=== PATIENT | male | born 1955 | race Caucasian/White ===

== ENCOUNTER 2021-02-26 01:07 | Day surgery (SDC) | payer MEDICARE, SELFPAY ==
[2021-02-16 11:43] VITALS: BMI 24.3
--- NOTE | 2021-02-26 09:48 | WPDANESEPPF ---
Anes - Initial Pre Proc Eval Procedure: Operation Date: 02/26/21 12:30 Proposed Procedures p Screening Colonoscopy - George Silvestre MD Date/Time: 02/26/21 09:48 Surgeon: George Silvestre MD Pre Op Diagnosis: hx of colon polyps Patient Data Age: 65 Gender: M Height: 1.78 m Weight: 77 kg Allergies Allergy/AdvReac Type Severity Reaction Status Date / Time No Known Allergies Verified 02/26/21 11:14 Home Medications Medication Instructions Recorded Confirmed Type aspirin [Adult Aspirin] 81 mg PO Q48H 02/16/21 02/16/21 History atorvastatin 20 mg PO DAILY 02/16/21 02/16/21 History fluticasone propionate 2 spray INTRANASAL DAILY 02/16/21 02/16/21 History Patient hx anesthesia problems: none Family hx anesthesia problems: none Results Review: All pre-operative results and documents have been reviewed as part of the pre-operative evaluation. [facility] Past Medical History Medical History (Updated 02/26/21 @ 09:49 by Mo Cordova MD) Hyperlipidemia DAWSON on CPAP PUD (peptic ulcer disease) Social History Social History Smoking status: Never smoker Alcohol intake: current Drinks per week: 2 Alcohol use details: SHOTS Substance use: never Substance use type: does not use Living arrangements: with family Spiritual care concerns: No Anes - Eval Final PreProcedure Day of Procedure 02/26/21 09:48 Patient weight: normal Heart: regular rate and rhythm Lungs: clear to auscultation and normal air movement Airway: Mallampati scale class II Neurological: alert and oriented Last oral intake: >/= 8 hours ASA classification: II Emergent: no Anesthetic plan: proceed Anesthesia type and monitoring: general GIVS Results Review: All pre-operative results and documents have been reviewed as part of the pre-operative evaluation. Informed Consent: The patient's anesthetic plan and its attendant risks and benefits were discussed with the patient/family/POA. Questions were solicited and answers provided to the satisfaction of the patient/family/POA.
[2021-02-26 11:20] VITALS: BP 131/72; PULSE 68; RESP 20; TEMP 36; O2SAT 100; BMI 24.7
[2021-02-26] MEDS: LACTATED RINGERS 1,000 ML 150 ML IV CONT (11:39)
--- NOTE | 2021-02-26 12:05 | WPDGICN ---
Assessment and Plan Assessment and plan (1) History of colon polyps: Code(s): Z86.010 - Personal history of colonic polyps Status: Acute Assessment and Plan: Patient has a history of adenomatous colon polyp removed from the colon in 2016 plan for surveillance colonoscopy at this time. Further recommendations will be given after colonoscopy. GI Consult Note Consult date/time: 02/26/21 12:05 HPI: Gabe Holden is a 65 year old male Presents for screening colonoscopy. Patient has a history of adenomatous colon polyp removed from the colon 5 years ago. He reports his current weight appetite bowel movements are normal. He denies abdominal pain. He has had no bleeding. Family history is noncontributory. Review of Systems Review of Systems: All systems reviewed & are unremarkable except as noted in HPI and below PMFSH Past Medical History Medical History (Updated 02/26/21 @ 12:06 by George Silvestre MD) Hyperlipidemia DAWSON on CPAP PUD (peptic ulcer disease) Social History Social History Smoking status: Never smoker Alcohol intake: current Drinks per week: 2 Alcohol use details: SHOTS Substance use: never Substance use type: does not use Living arrangements: with family Spiritual care concerns: No Meds Home Medications and Allergies Home Medications Medication Instructions Recorded Confirmed Type aspirin [Adult Aspirin] 81 mg PO Q48H 02/16/21 02/16/21 History atorvastatin 20 mg PO DAILY 02/16/21 02/16/21 History fluticasone propionate 2 spray INTRANASAL DAILY 02/16/21 02/16/21 History Allergies Allergy/AdvReac Type Severity Reaction Status Date / Time No Known Allergies Verified 02/26/21 11:14 Vital Signs Vital Signs - 24 hr 02/26/21 11:20 Temperature 96.8 F L Pulse Rate 68 Respiratory Rate 20 Blood Pressure 131/72 Pulse Oximetry 100 Exam Narrative: Physical exam reveals patient be alert. Vital signs stable. HEENT exam is unremarkable. Patient is anicteric. Lungs are clear to auscultation and percussion. Heart is without murmur or extra sounds. Abdominal exam bowel sounds present soft nontender with no organomegaly. Digital external rectal exam is normal.
[2021-02-26 12:31] VITALS: BP 100/61; PULSE 63; RESP 21; O2SAT 98
[2021-02-26 12:41] VITALS: BP 120/83; PULSE 56; RESP 18; O2SAT 98
[2021-02-26 12:51] VITALS: BP 120/80; PULSE 68; RESP 18; O2SAT 100
== END 2021-02-26 12:59 | disposition home or self-care (01) ==
PROVIDERS: PCP Student in an Organized Health Care Education/Training Program; Visit Provider Internal Medicine Gastroenterology
PROC: 0DJD8ZZ Inspection of Lower Intestinal Tract, Via Natural or Artificial Opening Endoscopic (ICD-10-PCS; CPT 45378; principal; 2021-02-26 12:30)
DX: Z12.11 Encounter for screening for malignant neoplasm of colon (principal); D12.3 Benign neoplasm of transverse colon; K64.8 Other hemorrhoids; E78.5 Hyperlipidemia, unspecified; G47.33 Obstructive sleep apnea (adult) (pediatric); Z79.82 Long term (current) use of aspirin
CPT/HCPCS: 45385; 88305; J2001; J2704; J7120

== ENCOUNTER → 2021-08-30 10:24 | Outpatient (CLI) | payer MEDICARE, SELFPAY ==
--- NOTE | ~2021-08-30 | XR_ITS ---
EXAMINATION: XR hand BI arthritis min 3V DATE: 08/30/2021 10:56 INDICATION: Traumatic susceptibility to other disease, YARIEL positive TECHNIQUE: Posteroanterior, lateral, and oblique views of the left and of the right hands as well as a ballcatchers view of both hands were obtained. COMPARISON: None. FINDINGS: Bone alignment is normal. There is no fracture. There is mild to moderate mild cystic change of the r ight capitate is also consistent with osteoarthritis. Osteoarthritis of multiple interphalangeal join ts. IMPRESSION: 1. 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 Reviewed, dictated and finalized at location A.
--- NOTE | ~2021-08-30 | XR_ITS ---
EXAMINATION: XR sacroiliac joints min 3V DATE: 08/30/2021 10:55 INDICATION: Genetic susceptibility to other disease. Positive YARIEL. TECHNIQUE: 3 views of the sacroiliac joints were obtained. COMPARISON: None. FINDINGS: Bone alignment is normal. No fracture. There is moderate lumbar spondylosis. There is mild osteoarthritis of the sacroiliac joints. There is moderate osteoarthritis of the hips. IMPRESSION: 1. Mild osteoarthritis of the sacroiliac joints. No evidence of inflammatory arthropathy. Reviewed, dictated and finalized at location A. IMPRESSION: 1. Mild osteoarthritis of the sacroiliac joints. No evidence of inflammatory ar thropathy.
== END ==
PROVIDERS: PCP Student in an Organized Health Care Education/Training Program; Visit Provider Physician Assistant
DX: Z15.89 Genetic susceptibility to other disease (principal); R76.8 Other specified abnormal immunological findings in serum; M53.83 Other specified dorsopathies, cervicothoracic region; M16.0 Bilateral primary osteoarthritis of hip; M19.042 Primary osteoarthritis, left hand; M19.041 Primary osteoarthritis, right hand
CPT/HCPCS: 72202; 73130